=== PATIENT | male | born 1965 | race Caucasian/White ===

== ENCOUNTER → 2017-05-31 | Outpatient (CLI) | payer OTHER ==
[~2017-05-31] MED LIST: HCTZ 25MG TAB25 MG PO; NORCO 325 MG-7.1 TAB PO
== END ==
LOC: MHCPAIN 14:34
DX: G89.29 Other chronic pain (principal); M47.27 Other spondylosis with radiculopathy, lumbosacral region; M53.3 Sacrococcygeal disorders, not elsewhere classified; M96.1 Postlaminectomy syndrome, not elsewhere classified
CPT/HCPCS: G0463

== ENCOUNTER → 2017-06-09 | Outpatient (CLI) | payer OTHER | LOC: MHCPAIN 13:47 | DX: M47.27 Other spondylosis with radiculopathy, lumbosacral region (principal); M96.1 Postlaminectomy syndrome, not elsewhere classified; M48.061 Spinal stenosis, lumbar region without neurogenic claudication | CPT/HCPCS: J1100; Q9967 ==

== ENCOUNTER → 2017-06-28 | Outpatient (CLI) | payer OTHER | LOC: MHCPAIN 15:17 | DX: G89.29 Other chronic pain (principal); M47.27 Other spondylosis with radiculopathy, lumbosacral region; M96.1 Postlaminectomy syndrome, not elsewhere classified | CPT/HCPCS: G0463 ==

== ENCOUNTER → 2017-06-30 | Outpatient (CLI) | payer OTHER | LOC: MHCPAIN 12:52 | DX: M47.27 Other spondylosis with radiculopathy, lumbosacral region (principal); M96.1 Postlaminectomy syndrome, not elsewhere classified; M48.061 Spinal stenosis, lumbar region without neurogenic claudication | CPT/HCPCS: J1100; Q9967 ==

== ENCOUNTER → 2017-07-27 | Outpatient (CLI) | payer OTHER | LOC: MHCPAIN 15:14 | DX: G89.29 Other chronic pain (principal); M47.817 Spondylosis without myelopathy or radiculopathy, lumbosacral region; M54.16 Radiculopathy, lumbar region; M96.1 Postlaminectomy syndrome, not elsewhere classified | CPT/HCPCS: G0463 ==

== ENCOUNTER 2018-08-29 07:53 | Day surgery (SDC) | payer OTHER ==
[~2018-08-29] VITALS: Ht 182.9 cm; Wt 103.0 kg
[2018-08-29 08:17] VITALS: BP 122/82; PULSE 73; TEMP 98.2
[2018-08-29] MEDS ORDERED: LOTENSIN HCT 201 TA1 PO (08:20)
[2018-08-29] MEDS ORDERED: MULTI VITAMINS1 TAB PO (08:21)
[2018-08-29] MEDS ORDERED: MOTRIN 800800 MG/TAB PO (08:21)
[2018-08-29 09:35] VITALS: BP 93/72; PULSE 61; TEMP 98.1
--- NOTE | 2018-08-29 09:35 | NUR ---
TO [facility] PER CART FROM ENDOSCOPY. AMBULATED TO RECLINER WITH ASSIST AND TOLERATED WELL. RECEIVED MUFFIN AND COFFEE.
[2018-08-29 09:50] VITALS: BP 107/81; PULSE 62
--- NOTE | 2018-08-29 09:50 | NUR ---
DR MISTRY INTO TALK WITH PATIENT AND ATE 100% AND TOLERATED WELL.
[2018-08-29 10:05] VITALS: BP 97/79; PULSE 66
--- NOTE | 2018-08-29 10:10 | NUR ---
RECEIVED DISCHARGE INSTUCTIONS AND VERBALIZED UNDERSTANDING. DISCONTINUED IV AND INT- CATHETER INTACT PATIENT GETTING DRESSED
--- NOTE | 2018-08-29 10:15 | NUR ---
DISCHARGED PER WC BY NURSING STAFF TO PRIVATE CAR IN CARE OF [facility].
== END 2018-08-29 10:30 | disposition home or self-care (01) ==
LOC: SDCO 07:53
DX: D12.0 Benign neoplasm of cecum (principal); D12.4 Benign neoplasm of descending colon; K63.5 Polyp of colon; K62.1 Rectal polyp; K64.0 First degree hemorrhoids; I10 Essential (primary) hypertension; Z86.010 Personal history of colon polyps; Z88.8 Allergy status to other drugs, medicaments and biological substances
CPT/HCPCS: J2250; J3010; J7030

== ENCOUNTER 2021-11-06 09:33 | Observation (INO) | payer OTHER ==
[~2021-11-06] VITALS: Ht 183 cm; Wt 109.5 kg
[~2021-11-06 09:33] MED LIST changes: +LOTENSIN HCT 201 TA1 PO; +MOTRIN 800800 MG/TAB PO; +MULTI VITAMINS1 TAB PO
[2021-11-06 10:31] LABS: BASO % 0.1 % (0.0-2.0); EOS % 0.2 % (0.0-4.0); GRAN # 9.9 K/mm3 (1.4-6.5); GRAN % 85.5 % (42.2-75.2); HEMATOCRIT 44.4 % (42.0-52.0); HEMOGLOBIN 15.8 g/dl (13.5-18.0); LYMPH # 0.9 K/mm3 (1.2-3.4); LYMPH % 8.1 % (20.0-51.0); MEAN CELL VOLUME 89 fl (80.0-100.0); MEAN CORPUSCULAR HEMOGLOBIN 32 pg (27-31); MEAN CORPUSCULAR HGB CONC 36 g/dl (33.0-37.0); MEAN PLATELET VOLUME 9.8 fl (7.4-10.4); MONO # 0.7 K/mm3 (0.1-0.6); MONO % 5.8 % (1.7-9.3); PLATELET COUNT 285 K/mm3 (130-400); RED BLOOD COUNT 5.01 M/mm3 (4.20-5.60); REDCELL DISTRIBUTION WIDTH-CV 11.9 % (11.5-14.5)
[2021-11-06 10:39] LABS: ALBUMIN 4.2 gm/dL (3.5-5.0); BILIRUBIN,TOTAL 0.6 mg/dL (0.2-1.2); CALCIUM 9.2 mg/dL (8.4-10.2); CREATININE, serum 1.62 mg/dL (0.72-1.25); POTASSIUM 4.2 mmol/L (3.5-4.5); TOTAL PROTEIN 7.8 gm/dL (6.2-8.1)
[2021-11-06] MEDS ORDERED: LIPITOR 10MG10 MG PO (12:12)
[2021-11-06] MEDS ORDERED: GLUCOPHAGE XR500 M1 PO (12:13)
[2021-11-06 14:53] VITALS: BP 173/98; PULSE 75; TEMP 99
[2021-11-06] MEDS ORDERED: PERCOCET 325 MG1 TA2 PO (17:09)
[2021-11-06 17:33] VITALS: TEMP 98.8
[2021-11-06 17:55] VITALS: BP 135/90; PULSE 72
[2021-11-06 18:10] VITALS: BP 158/89; PULSE 74
--- NOTE | 2021-11-06 18:38 | NUR ---
Patient received post op and reports feeling great. He was up to the bathroom & voided 150 mls of tea colored output. He tolerated a pitcher of water & crackers & applesauce without nausea. His supportive at bedside & he is wanting to get home. Iv DC. We reviewed discharge education. Patient already picked up prescriptions. We reviewed med list & medication safety. Patient aware to call tuesday for follow up appt & to call with any questions or concerns. Patient ambulated out with all belgongings.
[2021-11-06 22:18] VITALS: BP 135/90; PULSE 74
== END 2021-11-06 18:43 | disposition home or self-care (01) ==
LOC: COL.ER 09:33 → SURG 13:12 → EDBEDREQ 13:28 → MEDICAL 17:33
PROVIDERS: Student in an Organized Health Care Education/Training Program; ADMIT Urology
DX: N13.2 Hydronephrosis with renal and ureteral calculous obstruction (principal); I10 Essential (primary) hypertension; E78.5 Hyperlipidemia, unspecified; Z87.891 Personal history of nicotine dependence; Z79.899 Other long term (current) drug therapy
CPT/HCPCS: C1769; C2617; G0378; J0690; J1100; J1170; J1885; J2270; J2405; J2704; J3010; J7030; Q9967

== ENCOUNTER 2021-11-17 12:45 | Outpatient (RCR) | payer OTHER ==
[~2021-11-17 12:45] MED LIST changes: +GLUCOPHAGE XR500 M1 PO; +LIPITOR 10MG10 MG PO; +PERCOCET 325 MG1 TA2 PO
== END 2021-11-19 | disposition still patient (30) ==
LOC: WSOT
DX: M79.644 Pain in right finger(s) (principal)

== ENCOUNTER 2021-12-03 13:30 | Outpatient (RCR) | payer OTHER | END 2021-12-19 | disposition home or self-care (01) | LOC: WSOT | DX: M79.644 Pain in right finger(s) (principal); N20.0 Calculus of kidney; Z96.0 Presence of urogenital implants ==

== ENCOUNTER 2022-01-06 13:30 | Outpatient (RCR) | payer OTHER | END 2022-01-19 | disposition still patient (30) | LOC: WSOT | DX: M79.644 Pain in right finger(s) (principal) ==

== ENCOUNTER 2023-11-07 09:01 | Day surgery (SDC) | payer OTHER ==
[~2023-11-07] VITALS: Ht 182.9 cm; Wt 104.6 kg
[~2023-11-07 09:01] MED LIST changes: +DOXYCYCLINE 10100 MG PO; +LR 1,000 ML IV SCH; +Ondansetron 4 MG/2 ML VIAL IV PRN
[2023-11-07] MEDS ORDERED: RELAFEN750 MG PO (09:49)
[2023-11-07 09:52] VITALS: BP 140/86; PULSE 67; TEMP 97.2
[2023-11-07 11:25] VITALS: BP 108/88; PULSE 63; TEMP 97.5
--- NOTE | 2023-11-07 11:25 | NUR ---
PATIENT AMBULATED TO CHAIR WITH STEADY GAIT, ASSIST OF 2. ALERT AND AWAKE. DENIES PAIN, NAUSEA AND SHORTNESS OF BREATH. BREATHING REGULAR AND UNLABORED ON ROOM AIR. SKIN WARM AND DRY. IV IN PLACE. NURSE HANDOFF COMPLETED IN ROOM. SEE CHART FOR VITAL SIGNS. PATIENT HAD WATER AND A MUFFIN. BOTH FOOD AND DRINK TOLERATED WELL. CALL LIGHT IN REACH. SPOUSE, [facility], PRESENT IN ROOM.
[2023-11-07 11:30] VITALS: BP 115/80; PULSE 72
[2023-11-07 11:45] VITALS: BP 140/67; PULSE 65
[2023-11-07 11:57] VITALS: BP 147/87; PULSE 68
--- NOTE | 2023-11-07 12:22 | NUR ---
1200: DISCHARGE TEACHING COMPLETED WITH PRINTED EDUCATION AND INSTRUCTIONS SENT HOME WITH PATIENT. PATIENT VERBALIZED UNDERSTANDING OF TEACHING. 1201: IV REMOVED. GAUZE AND COBAN PLACED OVER SITE. 1220: MET WITH PATIENT AND SPOUSE TO DISCUSS PROCEDURE. 1222: PATIENT DISCHARGED HOME WITH [facility].
== END 2023-11-07 12:22 | disposition home or self-care (01) ==
LOC: SDCO 09:01
DX: Z12.11 Encounter for screening for malignant neoplasm of colon (principal); K64.0 First degree hemorrhoids; Z86.010 Personal history of colon polyps
CPT/HCPCS: J2704; J7120

== ENCOUNTER 2024-01-06 16:13 | Outpatient (RCR) | payer OTHER ==
[~2024-01-06 16:13] MED LIST changes: -LR 1,000 ML IV SCH; -Ondansetron 4 MG/2 ML VIAL IV PRN; +RELAFEN750 MG PO
== END 2024-01-20 | disposition home or self-care (01) ==
LOC: WSPT
DX: M25.561 Pain in right knee (principal); Z98.890 Other specified postprocedural states

== ENCOUNTER 2024-04-20 11:15 | Outpatient (RCR) | payer OTHER | END 2024-04-21 | disposition home or self-care (01) | LOC: WSPT | DX: M17.11 Unilateral primary osteoarthritis, right knee (principal); Z96.651 Presence of right artificial knee joint ==